=== PATIENT | female | born 1965 | race Caucasian/White ===

== ENCOUNTER 2017-01-29 07:07 | Inpatient (IN) ==
--- NOTE | 2017-01-28 21:36 | Discharge Summary ---
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 insulin use status Qualified Code(s): E11.9 - Type 2 diabetes mellitus without complications (5) Obesity Priority: Secondary Status: Chronic Qualifiers: Obesity type: due to excess calories Obesity classification: adult class 3 (BMI >= 40) Serious obesity comorbidity presence: unspecified whether serious comorbidity present Body mass index: unspecified BMI Qualified Code(s): E66.09 - Other obesity due to excess calories (6) RUPERT on CPAP Priority: Secondary Status: Chronic (7) Chronic pain Priority: Secondary Status: Chronic Qualifiers: Chronic pain type: chronic pain syndrome Qualified Code(s): G89.4 - Chronic pain syndrome (8) Fibromyalgia Priority: Secondary Status: Chronic (9) May-Thurner syndrome Priority: Secondary Status: Chronic - Discharge Medications Prescriptions: Aspirin Enteric Coated [Aspirin EC] 325 mg PO BID #42 tablet.dr Home Medications: OxyCODONE Immed Rel [Roxicodone 5 MG] 5 - 10 mg PO Q6HR PRN #40 tablet 01/28/17 [Rx] Cholecalciferol (D-3) [Vitamin D] 2,000 unit PO DAILY 01/29/17 [History] Clopidogrel [Plavix] 75 mg PO DAILY 01/29/17 [History] Etodolac 500 mg PO BID 01/29/17 [History] Gabapentin [Neurontin] 800 mg PO TID 01/29/17 [History] Lactobacillus Combination No.8 [Adult Probiotic] 1 cap PO DAILY 01/29/17 [ History] Lisinopril [Zestril] 20 mg PO DAILY 01/29/17 [History] Metformin HCl [Glucophage] 1,000 mg PO BID 01/29/17 [History] Metoprolol [Lopressor] 25 mg PO DAILY 01/29/17 [History] Omeprazole [PriLOSEC] 20 mg PO DAILY 01/29/17 [History] Tramadol HCl [Ultram] 50 mg PO BID PRN 01/29/17 [History] Aspirin Enteric Coated [Aspirin EC] 325 mg PO BID #42 tablet. 01/30/17 [Rx] Allergies/Adverse Reactions: 3 Allergy/AdvReac Type Severity Reaction Status Date / Time acetaminophen AdvReac Nausea Verified 01/29/17 08:00 [From Darvocet-N] propoxyphene AdvReac Nausea Verified 01/29/17 08:00 [From Darvocet-N] Primary care physician: Topher Freedman MD - Patient Status Disposition: Transfer Inpatient Rehab Fac Condition: Good - Discharge Instructions Instructions: Diabetes Mellitus Type 2 in Adults (DC), Chronic Hypertension (DC ), Anemia (GEN) Follow Up With: Paco Ashley MD [Partnered Physician] - 02/28/17 3:45 pm Myranda Goldman PAC [Physician Still Tender] - 02/08/17 8:15 am (Second followup (staple removal) 02/16/17 @ 8:15am ) Additional Instructions: Discharge Instructions: Total Knee Replacement Please call [facility] ([phone]), your Primary Care Physician, or report to the Emergency Room if you have any of the following symptoms: Nausea, vomiting, fever greater that 101.5, swelling, chest pain, shortness of breath, increased pain/redness/drainage/odor for your incision site, numbness/ tingling, or any other concerning symptoms. ACTIVITY:Weight-bearing as tolerated. You may progress off support (crutches or walker) as tolerated. MEDICATIONS: Upon discharge resume your home medications. Take all the medications as prescribed. Take a stool softener if taking narcotic pain medications. Stool softeners are only effective if you drink enough fluids. Drink 6-8 glass of water or fluids a day, unless this is not allowed for another health problem. Despite using stool softeners, if you haven't had a bowel movement in 3 days, please switch to a gentle laxative. Gentle laxatives are sold over the counter. You should have a bowel movement within 24 hours, if not call the office. You will be discharged from the hospital with a prescription for pain medication. You are encouraged to decrease the use of narcotic pain medication as tolerated. Should you require a refill, please call the office. [facility] prescribes narcotic pain medication for only 4-6 weeks after surgery. If you require pain medication beyond this time period, you may be referred to your Primary Care Physician or to the Pain Clinic for further evaluation. Plan ahead for refills on pain medication as many narcotics either need to be picked up at the office or mailed. It is best to call 48-72 hours in advance of needing a prescription refill so you don't run out of medication. To help control the post-operative pain, you may take NSAIDs (Aleve,Advil, Motrin, Ibuprofen, Naprosyn) or Tylenol as prescribed on the bottle in addition to the pain medication. ANTICOAGULATION (blood thinners): Continue your Aspirin, Lovenox or Coumadin as prescribed to help prevent a blood clot in the leg or in the lungs. As long as your incision remains dry and you tolerate the NSAIDs (Aleve, Advil, Motrin, ibuprofen, naprosyn), it is OK to use the NSAIDS while you are taking your anticoagulation medication. Should your incision start to drain, stop the NSAID and contact our office. Common symptoms of blood clot in the legs include: localized pain, swelling, calf tenderness, redness or discoloration of the skin. Blood clot in the lung symptoms include: shortness of breath, rapid pulse, sweating, and chest pain that worsens with deep breathing, coughing up blood, lightheadedness, feelings of anxiety. If you experience any of these symptoms notify your physician immediately, go to the emergency room, or if having trouble breathing, call 911. WOUND CARE: Leave the dressing on for 7 to 10days. You may change the dressing if it becomes saturated greater than 50%. Do not get the dressing wet at anytime. Wash your hands with antibacterial soap, rinse and dry prior to any wound care. If you have bran the visiting nurse or rehab facility can remove the stapes 10-14 days after surgery and place steri-strips across the wound. Leave the steri-strips in place until they fall off on their won. You may let water from the shower run on top of the steri-strips. If you do not have a visiting nurse or rehab facility, you will need to return to the office at 10-14 days for the bran to be removed. If you have itching or redness around the dressing call the office. FOLLOW-UP: Please follow up with your surgeon in the orthopedic clinic in 4 weeks from the day of surgery. If you have bran that need to be removed, you will need to come back to the office in 10-14 days from the day of surgery. - Hospital Course Hospital course: Ms. Del Castillo is a 51 year old female - Time Spent with Patient Total time spent providing and/or coordinating discharge services: <Paco Ashley - Last Filed: 02/02/17 06:35> Date of Encounter: 02/02/17 Time of Encounter: 06:35 - Discharge Diagnosis (1) Morbid obesity with BMI of 50.0-59.9, adult Priority: Secondary Status: Chronic (2) Arthritis of knee, left Priority: Primary Status: Chronic (3) Status post total knee replacement, left Priority: Primary Status: Acute (4) HTN (hypertension) Priority: Secondary Status: Chronic Qualifiers: Hypertension type: essential hypertension Qualified Code(s): I10 - Essential (primary) hypertension (5) DMII (diabetes mellitus, type 2) Priority: Secondary Status: Chronic Qualifiers: Diabetes mellitus complication status: without complication Diabetes mellitus intermodal owner operator truck driver insulin use: unspecified intermodal owner operator truck driver insulin use status Qualified Code(s): E11.9 - Type 2 diabetes mellitus without complications (6) RUPERT on CPAP Priority: Secondary Status: Chronic (7) Chronic pain Priority: Secondary Status: Chronic Qualifiers: Chronic pain type: chronic pain syndrome Qualified Code(s): G89.4 - Chronic pain syndrome (8) Fibromyalgia Priority: Secondary Status: Chronic (9) May-Thurner syndrome Priority: Secondary Status: Chronic (10) Acute blood loss anemia Priority: Primary Status: Acute Primary care physician: Topher Freedman MD - Patient Status Functional capacity at discharge: uses cane/walker Overall status at discharge: patient is progressing back to baseline - Hospital Course Hospital course: Ms. Del Castillo is a 51 year old female Status post left total knee replacement. The patient had an uneventful postoperative course. They received antibiotics and physical therapy and were discharged in stable condition. There will follow -up in the office in 2 weeks. - Time Spent with Patient Total time spent providing and/or coordinating discharge services:
--- NOTE | 2017-01-29 07:48 | Anesthesia Evaluation PreOp ---
Date of Encounter: 01/29/17 Time of Encounter: 07:53 - Past History Planned Operation: Left Total Knee Cardiac History: HTN Pulmonary History: RUPERT Dx (CPAP) SURFACE MINER History: Denies Any Significant HX Other Medical History: Diabetes Type II, GERD, Other (Fibromyalgia) Anesthesia History: No Prior Anesthetic Complications, Past Anesthesia (Appy, Cervical diskectomy, R. Knee scope, Sinus sx, T&A, Partial Hyst,) : No Alcohol Use: none Drug use: none Medications and Allergies Aspirin Enteric Coated [Aspirin EC] 325 mg PO DAILY #21 tablet.dr 01/28/17 [Rx] OxyCODONE Immed Rel [Roxicodone 5 MG] 5 - 10 mg PO Q6HR PRN #40 tablet 01/28/17 [Rx] Aspirin [Lo-Dose Aspirin EC] 81 mg PO DAILY 01/29/17 [History] Cholecalciferol (D-3) [Vitamin D] 2,000 unit PO DAILY 01/29/17 [History] Clopidogrel [Plavix] 75 mg PO DAILY 01/29/17 [History] Etodolac [Etodolac] 500 mg PO BID 01/29/17 [History] Gabapentin [Neurontin] 800 mg PO TID 01/29/17 [History] Lactobacillus Combination No.8 [Adult Probiotic] 1 cap PO DAILY 01/29/17 [ History] Lisinopril [Zestril] 20 mg PO DAILY 01/29/17 [History] Metformin HCl [Glucophage] 1,000 mg PO BID 01/29/17 [History] Metoprolol [Lopressor] 25 mg PO DAILY 01/29/17 [History] Omeprazole [PriLOSEC] 20 mg PO DAILY 01/29/17 [History] Tramadol HCl [Ultram] 50 mg PO BID PRN 01/29/17 [History] 3 Allergy/AdvReac Type Severity Reaction Status Date / Time acetaminophen AdvReac Nausea Verified 01/29/17 08:00 [From Darvocet-N] propoxyphene AdvReac Nausea Verified 01/29/17 08:00 [From Darvocet-N] - Meds/Allergy Pre-op Review Medications Reviewed: Yes Allergies Reviewed: Yes Beta Blockers on Current Med List: Yes If Beta Blockers taken, Date/Time (Last Dose taken): 01/29/2017 @ 06:00 Anesthesia Results - Labs Laboratory Tests 01/12/17 01/12/17 01/12/17 10:40 10:40 10:40 WBC 8.0 Hgb 11.5 Hct 36.7 Plt Count 138 L INR 1.1 Sodium 139 Potassium 3.9 Chloride 104 Carbon Dioxide 27 BUN 13 - Imaging EKG: image reviewed (SR) Anesthesia Exam O2 Sat Height 1.68 m Height 1.68 m Weight 150.139 kg Weight 150.139 kg O2 Sat by Pulse Oximetry 96 Vital Signs Temp Pulse Resp BP Pulse Ox 98.2 F 63 18 143/76 96 01/29/17 07:46 01/29/17 07:46 01/29/17 07:46 01/29/17 07:46 01/29/17 07:46 Height: 5'6'' Weight: 331# NPO (# of Hours): > 8 hrs Pain Scale: 0 Pain Scale Used: Numeric (1 - 10) - HEENT Pupil (Motor): Pupils equal, EOMI Mallampati: III Teeth: Normal Oral Opening: Greater than 3 - SURFACE MINER LOC: Oriented SURFACE MINER Motor: Normal RUE, Normal LUE, Normal RLE, Normal LLE, Normal Face SURFACE MINER Sensory: Normal: RUE, LUE, RLE, LLE, Face - Cardiac Rhythm: Regular Murmur: None JVD: No Carotid Bruit: No - Pulmonary Breath Sounds: bilateral Clear Respiratory Effort: Symmetrical Anesthesia Assess/Plan ASA Score: 4 Modified Paulo Scale for Level of Consciousness: Cooperative, oriented, and tranquil Anesthetic Plan: General, Regional (Left Fem. Nerve Block) Autologous Blood: Yes Monitoring Plan: Standard Monitors Recovery Plan: PACU
--- NOTE | 2017-01-29 07:54 | History & Physical Report ---
Date of Encounter: 01/29/17 Time of Encounter: 07:54 24 Hour HP Update - Instructions Instructions: If the History and Physical is less than 30 days old and was completed prior to A.M. admission and or procedure and has NOT been updated on calendar day of procedure please complete this update prior to performing procedure. - Update Patient reports changes in Medical Condition: No Changes in examination, assessment, or condition: No Changes in Medication: No Preop tests/diagnostics Reviewed: Yes Surgery Remains Indicated: Yes Consent for Planned Operative Procedure(s) Verified: Yes - Pre-Operative Checklist Preoperative Checklist Indicated: No Prophylactic Antibiotic Ordered: Yes Is VTE Prophylaxis Indicated?: Yes
[2017-01-29] MEDS ORDERED: CeFAZolin Pre 3,000 MG/100 ML 3,000 MG/100 ML BAG IVPB ONE (07:56)
[2017-01-29] MEDS ORDERED: Ringers Solution, Lactated 1,000 ML IVC SCH ×3 (08:00→12:48)
[2017-01-29] MEDS ORDERED: Dexamethasone 4 MG/ML VIAL ONE (08:17)
[2017-01-29] MEDS ORDERED: *HR* FentaNYL (PF) 100 MCG/2 ML VIAL ONE (08:17)
[2017-01-29] MEDS ORDERED: *HR* Midazolam HCl 2 MG/2 ML VIAL ONE (08:17)
[2017-01-29] MEDS ORDERED: Ondansetron 4 MG/2 ML VIAL ONE (08:17)
[2017-01-29] MEDS ORDERED: Lidocaine -MPF 2% 2 ML VIAL ONE (08:17)
[2017-01-29] MEDS ORDERED: *HR* Propofol 200 MG/20 ML VIAL IVP ONE ×2 (08:18→09:10)
[2017-01-29] MEDS ORDERED: Ondansetron 4 MG/2 ML VIAL IVP ONE (08:23)
[2017-01-29] MEDS ORDERED: *HR* Promethazine 25 MG/ML VIAL IVP PRN (08:23)
[2017-01-29] MEDS ORDERED: *HR* Labetalol 20 MG/4 ML SYRINGE IVP PRN (08:23)
[2017-01-29] MEDS ORDERED: ROPIVACAINE HCL/PF 0.5% 30 ML VIAL ONE (08:38)
--- NOTE | 2017-01-29 09:07 | Anesthesia Procedures ---
Date of Encounter: 01/29/17 Time of Encounter: 08:57 Procedures: Anesthesia - Nerve Block Procedure Date: 01/29/17 Time: 08:57 Surgical Procedure: left total knee Checklist: Correct Patient Identifier, Correct procedure, History checked Correct side: Left Blood Thinner: No Monitor Applied: BP, Pulse Oximetry Supplemental Oxygen via Nasal Cannula (L/min): 2 Sedation: Versed (mg): 2 Sedation: Fentanyl (mcg): 100 Indication: Post Op Analgesia Block Type: Femoral (and IPACK) Catheter placed: No Sterile Technique: Yes Ultrasound used: Yes Anatomy identified: Yes Visual spread of Local: Yes Neuro Stimulation: No Blood on Needle Aspiration: No Smooth Injection of Local: Yes Pain with Injection of Local: No Prep: Chlorhexadine Needle: 22 x 50 mm Stimuplex Local: Ropivacaine (30ml of 0.5%, ), Other (30ml of 0.25% rop plain) Volume (cc): 60ml Number of Attempts: 1 Complications: None/effective block Vitals: vss though out, block per request of surgeon
--- NOTE | 2017-01-29 10:28 | Orthopedic Operative Note ---
Date of procedure: 01/29/17 Pre-op diagnosis: Knee arthritis left Post-op diagnosis: same Procedure: Procedure: Left Total knee replacement Estimated blood loss: 500 cc Hardware: Metal and polyethylene replacement: Biomet Femur: 70, 14 x 120 Tibia: 75, 14 x 80 Milady insert: 10 Patella: 40 Exam Under anesthesia: Loss full extension 10 degrees full flexion Procedural Notes: Grade 4 arthritic changes medial compartment and patellofemoral joint. Operative procedure: The patient was brought to the operating room and placed on the operating room table. After general anesthesia was administered the operative knee was examined. Findings were noted in the exam under anesthesia. The operative extremity was prepped and draped in sterile surgical fashion. The patient received IV antibiotics prior to skin incision. A standard midline incision was made centered over the patella. The incision was made through the skin and subcutaneous tissue. A medial parapatellar tendon approach was performed. Care was taken to preserve tissue along the medial aspect of the patella. And to protect the patella tendon. The deep MCL was released off the medial tibia. The infra patella fat pad was excised. Knee was brought into flexion. Patient noted to have grade 4 arthritic changes medial compartment and patellofemoral joint. The entry hole was made for the intramedullary femoral guide. The guide was seated in 6 degrees of valgus. Anterior cut was made followed by the distal cut. The PCL the medial and the lateral menisci were excised. The tibia was subluxed forward. The entry hole was made for the intramedullary tibial guide. Guide was seated to resect 2 mm off the more abnormal side. The knee was brought into flexion the distal femur was sized to a 70 The femur was first reamed to a 14 x 1 20 The femoral guide was seated, the anterior cut was made followed by the posterior condylar cut, followed by the chamfer cuts. The finishing guide was seated the box cut was made. Trial had good fit and fixation The tibia was sized to a an 85 The tibia was first reamed to 14 x 80 Trial reduction revealed full extension no varus valgus instability with the appropriate X insert. The patella was everted and cut was made at the level of the insertion of the quadriceps and patella tendon. The patella was sized to a 40 the guide was seated and the lug holes are drilled. Trial reduction revealed excellent patella tracking. All trial components were removed all bony surfaces were irrigated. Components were assembled on the back table. The femur was cemented first followed by the tibia. The 10 Milady was seated and secured. The knee was brought into full extension. The patella was cemented and held in place with the patellar holding clamp. After the cement had hardened, the knee sat for 2 minutes with a Betadine saline solution. The knee was then irrigated out with 2 L of pulse irrigation. The knee was closed by the PA. The extensor mechanism was closed with #2 FiberWire suture and #2 PDS suture. The subcutaneous tissue was then irrigated and closed deep with #1 PDS suture superficially with 0 PDS suture and skin was closed with skin bran The patient was then placed in a sterile dressing and a postoperative brace extubated and transferred to recovery room in stable condition. Anesthesia: DIPAK Surgeon: Paco Ashley Cable Technician: Gilda Richardson Condition: stable Disposition: PACU
--- NOTE | 2017-01-29 10:33 | Physician Discharge Referral ---
Home Health/Hosp Referral Info Transfer to: Home Health Provider in Charge Post Discharge: PCP - Diagnosis (1) Arthritis of knee, left Priority: Primary Status: Chronic (2) Status post total knee replacement, left Priority: Primary Status: Acute (3) HTN (hypertension) Priority: Secondary Status: Chronic (4) DMII (diabetes mellitus, type 2) Priority: Secondary Status: Chronic (5) Obesity Status: Chronic (6) RUPERT on CPAP Priority: Secondary Status: Chronic (7) Chronic pain Priority: Secondary Status: Chronic (8) Fibromyalgia Priority: Secondary Status: Chronic (9) May-Thurner syndrome Priority: Secondary Status: Chronic - Respiratory Orders None Smoking Cessation: Smoking cessation has been advised. For more information, call the [employer] Tobacco Quit Line at 0-898-MBPE-NOW. - Diet/Nutrition Diet/Nutrition Orders: Regular - Activity Activity Orders: Up ad fabian, Ambulate - Services Needed Following services are medically necessary services: Nursing, Home Health Aide, Physical Therapy, Occupational Therapy Other Treatments: .Opsite placed. Keep dressing intact until first follow up appointment. If > 50 % saturated,notify offfice, remove dressing and place appropriate dressing back in place. Dressing is water resistant, not water-proof. OK to shower, but do not get dressing wet. Michelet in place, to be removed at POD#14-21. PT/OT. WBAT to affected extremity. Follow Total Knee Precautions x 6 weeks. STAY IN KNEE IMMOBILIZER DURING AMBULATION TO ALLOW WOUND TO HEAL X 3 WEEKS. Plan to discontinue brace after first post-operative appointment. ICE and elevate extremity frequently throughout the day. Encourage ambulation exercises. Use incentive spirometer 10 times every hour. - Transfer Medications Prescriptions: OxyCODONE Immed Rel [Roxicodone 5 MG] 5 - 10 mg PO Q6HR PRN #40 tablet PRN Reason: Pain Aspirin Enteric Coated [Aspirin EC] 325 mg PO DAILY #21 tablet. Home Medications: Aspirin Enteric Coated [Aspirin EC] 325 mg PO DAILY #21 tablet. 01/28/17 [Rx] OxyCODONE Immed Rel [Roxicodone 5 MG] 5 - 10 mg PO Q6HR PRN #40 tablet 01/28/17 [Rx] Aspirin [Lo-Dose Aspirin EC] 81 mg PO DAILY 01/29/17 [History] Cholecalciferol (D-3) [Vitamin D] 2,000 unit PO DAILY 01/29/17 [History] Clopidogrel [Plavix] 75 mg PO DAILY 01/29/17 [History] Etodolac 500 mg PO BID 01/29/17 [History] Gabapentin [Neurontin] 800 mg PO TID 01/29/17 [History] Lactobacillus Combination No.8 [Adult Probiotic] 1 cap PO DAILY 01/29/17 [ History] Lisinopril [Zestril] 20 mg PO DAILY 01/29/17 [History] Metformin HCl [Glucophage] 1,000 mg PO BID 01/29/17 [History] Metoprolol [Lopressor] 25 mg PO DAILY 01/29/17 [History] Omeprazole [PriLOSEC] 20 mg PO DAILY 01/29/17 [History] Tramadol HCl [Ultram] 50 mg PO BID PRN 01/29/17 [History] Allergies/Adverse Reactions: 3 Allergy/AdvReac Type Severity Reaction Status Date / Time acetaminophen AdvReac Nausea Verified 01/29/17 08:00 [From Darvocet-N] propoxyphene AdvReac Nausea Verified 01/29/17 08:00 [From Darvocet-N] Certification: Further, I certify that my clinical findings support that this patient is homebound (i.e. absences from home require considerable and taxing effort and are for medical reasons or temple services or infrequently or short duration when for other reasons) because: Homebound Reason: Post-surgery restriction and or conditions limit ability to leave home Attestation: My signature below is to certify that this patient is under my care and that I, or nurse practitioner, or a physician's workers compensation claims assistant working with me, has a face-to -face encounter with this patient.
[2017-01-29] MEDS: *HR* HYDROmorphone (PF) 1 MG/ML SYRINGE IVP PRN ×4 (11:14→18:34)
[2017-01-29] MEDS ORDERED: Ketorolac 30 MG/ML VIAL IVP ONE (11:43)
[2017-01-29] MEDS ORDERED: Acetaminophen IV 1,000 MG/100 ML INFUS..BTL ONE (12:15)
[2017-01-29 12:19] LABS: Hematocrit 36.3 % (35.3-44.9); Hemoglobin 11.7 g/dL (11.5-15.4)
--- NOTE | 2017-01-29 12:24 | Anesthesia Evaluation Post Op ---
Date of Encounter: 01/29/17 Time of Encounter: 12:22 - Vital Signs Vital Signs: vss - Lungs Lungs: Clear Ascult./Percussion - Airway Airway: Non-obstructed - Cardiovascular Baseline Rhythm - Mental Status Mental Status: Asleep with brisk response to light stimulation - Pain Pain Scale used: Josephine (Faces) (ok to transfer if pain is tolerable) - Nausea Vomiting Nausea Vomiting: Not Present - Hydration Hydration: Ice chips - Discharge PostOp Status: Transfer Patient to floor
[2017-01-29] MEDS ORDERED: *HR* OxyCODONE Immed Rel 5 MG TABLET PO PRN (12:48)
[2017-01-29] MEDS ORDERED: MOM Conc 10 ML UD.LIQ PO PRN (12:48)
[2017-01-29] MEDS ORDERED: Sennosides 8.6 MG TABLET PO PRN (12:48)
[2017-01-29] MEDS ORDERED: Naloxone 0.4 MG/ML INJ IVP PRN (12:48)
[2017-01-29] MEDS ORDERED: Ondansetron 4 MG/2 ML VIAL IVP PRN (12:48)
[2017-01-29] MEDS: Gabapentin 400 MG CAPSULE PO SCH ×2 (15:03→20:53)
[2017-01-29] MEDS: ceFAZolin 3,000 MG in D5% in Water 100 ML IVPB SCH ×2 (16:15→23:09)
[2017-01-29] MEDS: *HR* OxyCODONE Immed Rel 5 MG TABLET PO PRN (17:34)
[2017-01-29] MEDS: *HR* Enoxaparin 30 MG/0.3 ML SYRINGE SQ SCH (17:34)
[2017-01-29] MEDS ORDERED: *HR* Enoxaparin 30 MG/0.3 ML SYRINGE SQ SCH (18:00)
[2017-01-29] MEDS ORDERED: *HR* Dextrose 50 % in Water (Syg) 50 ML SYRINGE IVP PRN (20:01)
[2017-01-29] MEDS ORDERED: D5% in Water 1,000 ML IVC PRN (20:01)
[2017-01-29] MEDS ORDERED: Dextrose Gel 15 GM PO PRN ×2 (20:01)
[2017-01-29] MEDS: *HR* Metformin 500 MG TABLET PO SCH (20:53)
[2017-01-29] MEDS ORDERED: Temazepam 15 MG CAPSULE PO PRN (21:00)
[2017-01-29] MEDS: Insulin LISPRO 300 UNITS/3 ML VIAL SQ SCH (21:31)
[2017-01-30] MEDS: *HR* HYDROmorphone (PF) 1 MG/ML SYRINGE IVP PRN ×4 (00:42→23:36)
[2017-01-30] MEDS: *HR* OxyCODONE Immed Rel 5 MG TABLET PO PRN ×4 (04:31→22:24)
[2017-01-30] MEDS: *HR* Enoxaparin 30 MG/0.3 ML SYRINGE SQ SCH ×2 (06:45→18:24)
--- NOTE | 2017-01-30 06:54 | Orthopedics Progress Note ---
Date of Encounter: 01/30/17 Time of Encounter: 06:53 - Assessment and Plan (1) Morbid obesity with BMI of 50.0-59.9, adult Current Visit: Yes Status: Chronic (2) Arthritis of knee, left Current Visit: Yes Status: Chronic (3) Status post total knee replacement, left Current Visit: Yes Status: Acute (4) HTN (hypertension) Current Visit: Yes Status: Chronic Qualifiers: Hypertension type: essential hypertension Qualified Code(s): I10 - Essential (primary) hypertension (5) DMII (diabetes mellitus, type 2) Current Visit: Yes Status: Chronic Qualifiers: Diabetes mellitus complication status: without complication Diabetes mellitus long term care administrator insulin use: unspecified chcf insulin use status Qualified Code(s): E11.9 - Type 2 diabetes mellitus without complications (6) RUPERT on CPAP Current Visit: Yes Status: Chronic (7) Chronic pain Current Visit: Yes Status: Chronic Qualifiers: Chronic pain type: chronic pain syndrome Qualified Code(s): G89.4 - Chronic pain syndrome (8) Fibromyalgia Current Visit: Yes Status: Chronic (9) May-Thurner syndrome Current Visit: Yes Status: Chronic Subjective Interval history: Patient was seen this morning doing well without complaints. Afebrile vital signs stable. Operative extremity: Neurovascularly intact Dressing clean dry and intact Calves nontender Assessment and plan: Continue with postoperative care hematocrit 36 Objective Vital signs: Vital Signs Temp Pulse Resp BP Pulse Ox 01/30/17 05:45 97.9 F 60 16 112/64 96 01/29/17 23:45 98.6 F 75 15 108/71 98 01/29/17 21:23 97.8 F 70 16 118/65 96 01/29/17 18:34 64 14 147/67 96 01/29/17 17:26 98.2 F 80 18 121/77 97 01/29/17 16:06 97.7 F 65 16 119/57 97 01/29/17 14:55 97.7 F 59 12 115/56 97 01/29/17 14:00 97.9 F 62 14 128/63 95 01/29/17 13:23 97.9 F 56 12 101/53 98 01/29/17 12:58 98.3 F 60 16 151/74 96 01/29/17 12:44 60 18 142/62 99 01/29/17 12:37 97.0 F L 58 16 145/60 98 01/29/17 12:27 56 18 142/68 99 01/29/17 12:17 59 22 148/57 100 01/29/17 12:07 97.2 F L 57 18 148/70 100 01/29/17 11:57 63 22 148/70 100 01/29/17 11:47 61 20 144/66 100 01/29/17 11:37 97.0 F L 61 20 149/83 100 01/29/17 11:27 64 22 153/76 100 01/29/17 11:17 68 20 150/79 100 01/29/17 11:07 97.0 F L 67 20 170/80 100 01/29/17 09:26 65 16 140/69 99 01/29/17 09:13 65 16 133/69 100 01/29/17 09:00 63 16 140/72 99 01/29/17 08:43 60 63 141/72 98 01/29/17 08:39 98.2 F 63 18 143/76 96 01/29/17 08:33 62 16 161/87 98 01/29/17 08:06 98.2 F 63 18 143/76 96 01/29/17 07:46 98.2 F 63 18 143/76 96 Intake and Output 01/29/17 01/29/17 01/30/17 15:59 23:59 07:59 Intake Total 100 / 100 100 / 100 Output Total 500 / 500 250 / 250 Balance -400 / -400 100 / 100 -250 / -250 Intake: IV Fluids 100 / 100 100 / 100 Ancef Premix 3,000 MG/100 100 / 100 ML 3,000 mg In 100 ml @ 200 mls/hr IVPB PREOP ONE Rx#:[id number] Ancef 3,000 MG In 100 / 100 Dextrose 5% 100 ML @ 200 mls/hr IVPB Q8HR RENÉ Rx#: [id number] Output: Urine 250 / 250 Estimated Blood Loss 500 / 500 Other: Weight 150.139 kg 148 kg Blood Glucose* 134 173 - Labs CBC & BMP: 01/29/17 11:53 Labs: Abnormal lab results POC Glucose 107 (58-89) H 01/29/17 07:40 - VTE Documentation of Mechanical Device: Intermittent pneumatic compression device Consult Discharge Plan - Plan Referrals: Topher Freedman MD [Primary Care Provider] -
[2017-01-30] MEDS: Insulin LISPRO 300 UNITS/3 ML VIAL SQ SCH ×4 (07:30→23:31)
[2017-01-30 08:21] LABS: Hematocrit 30.7 % (35.3-44.9)
[2017-01-30 08:22] LABS: Hemoglobin 9.8 g/dL (11.5-15.4)
[2017-01-30 08:34] LABS: BUN/Creatinine Ratio 19 (6-26); Blood Urea Nitrogen 15 mg/dL (7-20); Calcium 8.7 mg/dL (8.6-10.8); Carbon Dioxide 26 mEq/L (19-29); Chloride 100 mEq/L (98-109); Glucose 110 mg/dL (70-99); Osmolality,Calculated 285 (280-300); Sodium 137 mEq/L (136-145); eGFR For African Americans > 60 (> 60); eGFR For Non-African Americans > 60 (> 60)
[2017-01-30 08:35] LABS: Potassium 4.9 mEq/L (3.5-4.5)
[2017-01-30] MEDS: Lactobacillus 1 EACH CAP.SPRINK PO SCH (08:37)
[2017-01-30] MEDS: Lisinopril 20 MG TABLET PO SCH (08:37)
[2017-01-30] MEDS: Aspirin Enteric Coated 81 MG Tablet PO SCH (08:37)
[2017-01-30] MEDS: Gabapentin 400 MG CAPSULE PO SCH ×3 (08:37→22:14)
[2017-01-30] MEDS: Cholecalciferol (D-3) 1,000 UNIT TABLET PO SCH (08:38)
[2017-01-30] MEDS: *HR* Metformin 500 MG TABLET PO SCH ×2 (08:38→22:14)
--- NOTE | 2017-01-30 12:06 | Event Note ---
Date of Encounter: 01/30/17 Time of Encounter: 12:04 PCR - Left TKR 01/30/17 - POD#1 Patient seen at bedside. Cormorbidities: DMII, Obesity, HTN, May-Thurner syndrome (Plavix), Chronic pain , fibromyalgia, RUPERT - CPAP Labs: K 4.9 - monitoring Pain control: adequate - Allergy to Darvocet- ok with Oxycodone Increased DVT risk - continue Lovenox in hospital Participating in PT. Knee immobilizer brace, locked in extension x 2-4 weeks. No knee flexion to allow incision to heal* All questions and concerns addressed. Educated on use of incentive spirometer, ambulation, and hydration. Patient educated on post-operative restrictions and care. Addressed: DVT s/s, Knee immobilization - restrictions Home Antigoaculation: ASA 325 BID x 21 days, along with continuing Plavix. RX printed and signed* D/C plan:. ECF - likely
--- NOTE | 2017-01-30 17:18 | Physician Discharge Referral ---
ExtendedCare Referral Info Transfer To: F Provider in Charge after Transfer: PCP Institutional Level of Care: Skilled - Diagnosis (1) Arthritis of knee, left Priority: Primary Status: Chronic (2) Status post total knee replacement, left Priority: Primary Status: Acute (3) HTN (hypertension) Priority: Secondary Status: Chronic (4) DMII (diabetes mellitus, type 2) Priority: Secondary Status: Chronic (5) Obesity Priority: Secondary Status: Chronic (6) RUPERT on CPAP Priority: Secondary Status: Chronic (7) Chronic pain Priority: Secondary Status: Chronic (8) Fibromyalgia Priority: Secondary Status: Chronic (9) May-Thurner syndrome Status: Chronic Expected Duration of Placement: < 30 days Prognosis: Good Aware of Diagnosis: Patient Aware of Prognosis: Patient - Transfer Medications Prescriptions: Aspirin Enteric Coated [Aspirin EC] 325 mg PO BID #42 tablet. Home Medications: OxyCODONE Immed Rel [Roxicodone 5 MG] 5 - 10 mg PO Q6HR PRN #40 tablet 01/28/17 [Rx] Cholecalciferol (D-3) [Vitamin D] 2,000 unit PO DAILY 01/29/17 [History] Clopidogrel [Plavix] 75 mg PO DAILY 01/29/17 [History] Etodolac 500 mg PO BID 01/29/17 [History] Gabapentin [Neurontin] 800 mg PO TID 01/29/17 [History] Lactobacillus Combination No.8 [Adult Probiotic] 1 cap PO DAILY 01/29/17 [ History] Lisinopril [Zestril] 20 mg PO DAILY 01/29/17 [History] Metformin HCl [Glucophage] 1,000 mg PO BID 01/29/17 [History] Metoprolol [Lopressor] 25 mg PO DAILY 01/29/17 [History] Omeprazole [PriLOSEC] 20 mg PO DAILY 01/29/17 [History] Tramadol HCl [Ultram] 50 mg PO BID PRN 01/29/17 [History] Aspirin Enteric Coated [Aspirin EC] 325 mg PO BID #42 tablet. 01/30/17 [Rx] Allergies/Adverse Reactions: 3 Allergy/AdvReac Type Severity Reaction Status Date / Time acetaminophen AdvReac Nausea Verified 01/29/17 08:00 [From Praveent-N] propoxyphene AdvReac Nausea Verified 09/18/17 08:00 [From Darvocet-N] - Respiratory Orders None Smoking Cessation: Smoking cessation has been advised. For more information, call the [place] Tobacco Quit Line at 9-859-DXUX-NOW. - Lab Orders Lab Orders: CBC - Ancillary Orders May use pressure relief devices daily prn, May go on ANNA w/family/respon libertarian w /meds at nurse discretion PRN, May consult with Dentist, Marine Chronometer Assembler, Machine Farmworker PRN - Mobility Orders Chair, Ambulate - Rehabiliation Orders Rehab Potential: Good Rehab Orders: ROM Exercises, Evaluation for Physical Therapy, Evaluation for Occupational Therapy Other: Wear knee immobilizer at all times x 3-4 weeks. No knee flexion WBAT - Treatments List/Other: Opsite dressing, leave intact until first post-operative visit. If dressing becomes >50% saturated, contact office, remove dressing and place appropriate dressing in its place. Do not allow for dressing to get wet. D[place] in place, plan to remove at post-operative day #14-16. Total Joint Precautions x 6 weeks Apply cold therapy wrap 3-6x/day for 20 minutes at a time. Encourage ambulation throughout the day Use Incentive spirometer 10x/hour. Elevate affected extremity above heart as tolerated. Brace: Wear knee immobilizer at all times x 3-4 weeks. No knee flexion WBAT CERTIFICATION: I certify that the transfer of the above named patient to an Extended Care Facility is necessary for the continuing treatment of the diagnosis listed. The above information is true and accurate reflection of patient's current condition. Confidential - Redisclosure prohibited without a patient's written consent.
[2017-01-31] MEDS: *HR* OxyCODONE Immed Rel 5 MG TABLET PO PRN ×2 (04:05→15:02)
[2017-01-31] MEDS: *HR* Enoxaparin 30 MG/0.3 ML SYRINGE SQ SCH ×2 (05:55→17:33)
[2017-01-31] MEDS: *HR* HYDROmorphone (PF) 1 MG/ML SYRINGE IVP PRN (05:56)
--- NOTE | 2017-01-31 06:52 | Orthopedics Progress Note ---
Date of Encounter: 01/31/17 Time of Encounter: 06:52 - Assessment and Plan (1) Morbid obesity with BMI of 50.0-59.9, adult Current Visit: Yes Status: Chronic (2) Arthritis of knee, left Current Visit: Yes Status: Chronic (3) Status post total knee replacement, left Current Visit: Yes Status: Acute (4) HTN (hypertension) Current Visit: Yes Status: Chronic Qualifiers: Hypertension type: essential hypertension Qualified Code(s): I10 - Essential (primary) hypertension (5) DMII (diabetes mellitus, type 2) Current Visit: Yes Status: Chronic Qualifiers: Diabetes mellitus complication status: without complication Diabetes mellitus extermination inspector insulin use: unspecified skilled nursing insulin use status Qualified Code(s): E11.9 - Type 2 diabetes mellitus without complications (6) RUPERT on CPAP Current Visit: Yes Status: Chronic (7) Chronic pain Current Visit: Yes Status: Chronic Qualifiers: Chronic pain type: chronic pain syndrome Qualified Code(s): G89.4 - Chronic pain syndrome (8) Fibromyalgia Current Visit: Yes Status: Chronic (9) May-Thurner syndrome Current Visit: Yes Status: Chronic (10) Acute blood loss anemia Current Visit: Yes Status: Acute Subjective Interval history: Patient was seen this morning doing well without complaints. Afebrile vital signs stable. Operative extremity: Neurovascularly intact Dressing clean dry and intact Calves nontender Assessment and plan: Continue with postoperative care hematocrit 30 Objective Vital signs: Vital Signs Temp Pulse Resp BP Pulse Ox 01/31/17 01:02 98.9 F 84 20 158/70 99 01/30/17 23:29 99 F 74 18 138/62 95 01/30/17 20:17 98.3 F 68 97 100/61 01/30/17 15:09 98.5 F 97 20 97/58 98 01/30/17 11:17 97.7 F 66 18 109/69 96 01/30/17 07:08 98.3 F 69 18 134/73 97 Intake and Output 01/30/17 01/30/17 01/31/17 15:59 23:59 07:59 Intake Total 360 / 360 50 / 50 800 / 800 Output Total 400 / 400 1550 / 1550 Balance 360 / 360 -350 / -350 -750 / -750 Intake: Oral 360 / 360 50 / 50 800 / 800 Output: Urine 400 / 400 1550 / 1550 Other: Meal Lunch Percent of Meal Consumed 100% # Voids 1 2 Blood Glucose* 115 91 - Labs CBC & BMP: 01/30/17 07:50 01/30/17 07:50 Labs: Abnormal lab results Hgb 9.8 g/dL (11.5-15.4) L D 01/30/17 07:50 Hct 30.7 % (35.3-44.9) L 01/30/17 07:50 Potassium 4.9 mEq/L (3.5-4.5) H 01/30/17 07:50 Glucose 110 mg/dL (70-99) H 01/30/17 07:50 POC Glucose 121 (58-89) H 01/30/17 21:07 - VTE Documentation of Mechanical Device: Venous foot pump, device Consult Discharge Plan - Plan Additional Instructions: Discharge Instructions: Total Knee Replacement Please call [facility] ([phone]), your Primary Care Physician, or report to the Emergency Room if you have any of the following symptoms: Nausea, vomiting, fever greater that 101.5, swelling, chest pain, shortness of breath, increased pain/redness/drainage/odor for your incision site, numbness/ tingling, or any other concerning symptoms. ACTIVITY:Weight-bearing as tolerated. You may progress off support (crutches or walker) as tolerated. MEDICATIONS: Upon discharge resume your home medications. Take all the medications as prescribed. Take a stool softener if taking narcotic pain medications. Stool softeners are only effective if you drink enough fluids. Drink 6-8 glass of water or fluids a day, unless this is not allowed for another health problem. Despite using stool softeners, if you haven't had a bowel movement in 3 days, please switch to a gentle laxative. Gentle laxatives are sold over the counter. You should have a bowel movement within 24 hours, if not call the office. You will be discharged from the hospital with a prescription for pain medication. You are encouraged to decrease the use of narcotic pain medication as tolerated. Should you require a refill, please call the office. [facility] prescribes narcotic pain medication for only 4-6 weeks after surgery. If you require pain medication beyond this time period, you may be referred to your Primary Care Physician or to the Pain Clinic for further evaluation. Plan ahead for refills on pain medication as many narcotics either need to be picked up at the office or mailed. It is best to call 48-72 hours in advance of needing a prescription refill so you don't run out of medication. To help control the post-operative pain, you may take NSAIDs (Aleve,Advil, Motrin, Ibuprofen, Naprosyn) or Tylenol as prescribed on the bottle in addition to the pain medication. ANTICOAGULATION (blood thinners): Continue your Aspirin, Lovenox or Coumadin as prescribed to help prevent a blood clot in the leg or in the lungs. As long as your incision remains dry and you tolerate the NSAIDs (Aleve, Advil, Motrin, ibuprofen, naprosyn), it is OK to use the NSAIDS while you are taking your anticoagulation medication. Should your incision start to drain, stop the NSAID and contact our office. Common symptoms of blood clot in the legs include: localized pain, swelling, calf tenderness, redness or discoloration of the skin. Blood clot in the lung symptoms include: shortness of breath, rapid pulse, sweating, and chest pain that worsens with deep breathing, coughing up blood, lightheadedness, feelings of anxiety. If you experience any of these symptoms notify your physician immediately, go to the emergency room, or if having trouble breathing, call 911. WOUND CARE: Leave the dressing on for 7 to 10days. You may change the dressing if it becomes saturated greater than 50%. Do not get the dressing wet at anytime. Wash your hands with antibacterial soap, rinse and dry prior to any wound care. If you have bran the visiting nurse or rehab facility can remove the stapes 10-14 days after surgery and [address] steri-strips across the wound. Leave the steri-strips in place until they fall off on their won. You may let water from the shower run on top of the steri-strips. If you do not have a visiting nurse or rehab facility, you will need to return to the office at 10-14 days for the bran to be removed. If you have itching or redness around the dressing call the office. FOLLOW-UP: Please follow up with your surgeon in the orthopedic clinic in 4 weeks from the day of surgery. If you have bran that need to be removed, you will need to come back to the office in 10-14 days from the day of surgery. Referrals: Paco Ashley MD [Partnered Physician] - 02/28/17 3:45 pm Myranda Goldman PAC [Physician Real Estate Listing Consultant] - 02/08/17 8:15 am (Second followup (staple removal) 02/16/17 @ 8:15am ) Prescriptions: Aspirin Enteric Coated [Aspirin EC] 325 mg PO BID #42 tablet.
[2017-01-31 06:54] LABS: BUN/Creatinine Ratio 25 (6-26); Blood Urea Nitrogen 19 mg/dL (7-20); Calcium 8.7 mg/dL (8.6-10.8); Carbon Dioxide 28 mEq/L (19-29); Chloride 99 mEq/L (98-109); Glucose 135 mg/dL (70-99); Osmolality,Calculated 286 (280-300); Potassium 4.4 mEq/L (3.5-4.5); eGFR For African Americans > 60 (> 60); eGFR For Non-African Americans > 60 (> 60)
[2017-01-31 06:55] LABS: Sodium 136 mEq/L (136-145)
[2017-01-31 07:02] LABS: Hematocrit 29.1 % (35.3-44.9); Hemoglobin 9.2 g/dL (11.5-15.4)
[2017-01-31] MEDS: Insulin LISPRO 300 UNITS/3 ML VIAL SQ SCH ×4 (08:04→23:15)
[2017-01-31] MEDS: Lisinopril 20 MG TABLET PO SCH (08:07)
[2017-01-31] MEDS: Lactobacillus 1 EACH CAP.SPRINK PO SCH (08:07)
[2017-01-31] MEDS: Gabapentin 400 MG CAPSULE PO SCH ×3 (08:07→20:37)
[2017-01-31] MEDS: Aspirin Enteric Coated 81 MG Tablet PO SCH (08:07)
[2017-01-31] MEDS: Cholecalciferol (D-3) 1,000 UNIT TABLET PO SCH (08:07)
[2017-01-31] MEDS: *HR* Metformin 500 MG TABLET PO SCH ×2 (08:08→20:38)
--- NOTE | 2017-01-31 11:59 | Event Note ---
Date of Encounter: 01/31/17 Time of Encounter: 13:21 PCR - Left TKR 01/30/17 - POD#1 Patient seen at bedside. Cormorbidities: DMII, Obesity, HTN, May-Thurner syndrome (Plavix), Chronic pain , fibromyalgia, RUPERT - CPAP Labs: K 4.9 - monitoring 01/30 01/31 K 4.4 Pain control: adequate - Allergy to Darvocet- ok with Oxycodone Increased DVT risk - continue Lovenox in hospital Participating in PT. Knee immobilizer brace, locked in extension x 2-4 weeks. No knee flexion to allow incision to heal* All questions and concerns addressed. Educated on use of incentive spirometer, ambulation, and hydration. Patient educated on post-operative restrictions and care. Addressed: DVT s/s, Knee immobilization - restrictions Home Antigoaculation: ASA 325 BID x 21 days, along with continuing Plavix. RX printed and signed* D/C plan:. ECF - or Sunday likely
[2017-02-01] MEDS: *HR* OxyCODONE Immed Rel 5 MG TABLET PO PRN ×2 (01:31→07:21)
[2017-02-01] MEDS: *HR* Enoxaparin 30 MG/0.3 ML SYRINGE SQ SCH (06:29)
[2017-02-01] MEDS: *HR* Metformin 500 MG TABLET PO SCH (09:06)
[2017-02-01] MEDS: Aspirin Enteric Coated 81 MG Tablet PO SCH (09:06)
[2017-02-01] MEDS: Lactobacillus 1 EACH CAP.SPRINK PO SCH (09:06)
[2017-02-01] MEDS: Gabapentin 400 MG CAPSULE PO SCH ×2 (09:07→14:13)
[2017-02-01] MEDS: Cholecalciferol (D-3) 1,000 UNIT TABLET PO SCH (09:07)
[2017-02-01] MEDS: Insulin LISPRO 300 UNITS/3 ML VIAL SQ SCH ×3 (09:07→17:35)
[2017-02-01] MEDS: Lisinopril 20 MG TABLET PO SCH (09:08)
[2017-02-01 09:39] LABS: Hematocrit 32.6 % (35.3-44.9); Hemoglobin 10.2 g/dL (11.5-15.4)
--- NOTE | 2017-02-01 12:08 | Orthopedics Progress Note ---
Date of Encounter: 02/01/17 Time of Encounter: 08:00 - Assessment and Plan (1) Status post total knee replacement, left Current Visit: Yes Status: Acute Left TKR 01/30/17 - POD#3 Patient doing well, A&O in chair, Pain controlled. Vitals stable. Afebrile. H/H - Stable - improved - - asymptomatic Plan: Continue in knee immobilizer brace x 2-3 weeks to allow incision to heal, no knee flexion. LLE: WBAT D/C to ECF today - still working with social service director (2) Arthritis of knee, left Current Visit: Yes Status: Chronic (3) HTN (hypertension) Current Visit: Yes Status: Chronic Qualifiers: Hypertension type: essential hypertension Qualified Code(s): I10 - Essential (primary) hypertension (4) DMII (diabetes mellitus, type 2) Current Visit: Yes Status: Chronic Qualifiers: Diabetes mellitus complication status: without complication Diabetes mellitus termite renewal inspector insulin use: unspecified senior care insulin use status Qualified Code(s): E11.9 - Type 2 diabetes mellitus without complications (5) Obesity Current Visit: Yes Status: Chronic Qualifiers: Obesity type: due to excess calories Obesity classification: adult class 3 (BMI >= 40) Serious obesity comorbidity presence: unspecified whether serious comorbidity present Body mass index: unspecified BMI Qualified Code(s): E66.09 - Other obesity due to excess calories (6) RUPERT on CPAP Current Visit: Yes Status: Chronic (7) Chronic pain Current Visit: Yes Status: Chronic Qualifiers: Chronic pain type: chronic pain syndrome Qualified Code(s): G89.4 - Chronic pain syndrome (8) Fibromyalgia Current Visit: Yes Status: Chronic (9) May-Thurner syndrome Current Visit: Yes Status: Chronic Subjective Principal diagnosis: Left TKR 01/30/17 - POD Interval history: Left TKR 01/30/17 - POD#3 Patient doing well, A&O in chair, Pain controlled. Vitals stable. Afebrile. H/H - Stable - improved - - asymptomatic LLE: Minimal swelling, no erythema or ecchymosis noted. No calf tenderness or warmth noted. ROM limited. NV intact distally. In knee immobilzer brace. Plan: Continue in knee immobilizer brace x 2-3 weeks to allow incision to heal, no knee flexion. LLE: WBAT D/C to ECF today - still working with social service director. Objective Vital signs: Vital Signs Temp Pulse Resp BP Pulse Ox 02/01/17 11:16 98.6 F 72 16 139/80 96 02/01/17 07:35 97.9 F 76 16 174/78 97 01/31/17 23:38 98.7 F 71 19 145/62 99 01/31/17 18:54 98.6 F 72 20 142/56 96 01/31/17 15:07 97.5 F L 70 20 119/70 99 Intake and Output 01/31/17 02/01/17 02/01/17 23:59 07:59 15:59 Intake Total 240 / 240 Balance 240 / 240 Intake: Oral 240 / 240 Other: Meal Dinner Percent of Meal Consumed 90% Blood Glucose* 148 103 127 Incision: clean and dry - Labs CBC & BMP: 02/01/17 09:18 01/31/17 06:04 Labs: Abnormal lab results Hgb 10.2 g/dL (11.5-15.4) L 02/01/17 09:18 Hct 32.6 % (35.3-44.9) L 02/01/17 09:18 Glucose 135 mg/dL (70-99) H 01/31/17 06:04 POC Glucose 143 (58-89) H 01/31/17 21:15 - VTE Documentation of Mechanical Device: Venous foot pump, device Consult Discharge Plan - Plan Additional Instructions: Discharge Instructions: Total Knee Replacement Please call [facility] ([phone]), your Primary Care Physician, or report to the Emergency Room if you have any of the following symptoms: Nausea, vomiting, fever greater that 101.5, swelling, chest pain, shortness of breath, increased pain/redness/drainage/odor for your incision site, numbness/ tingling, or any other concerning symptoms. ACTIVITY:Weight-bearing as tolerated. You may progress off support (crutches or walker) as tolerated. MEDICATIONS: Upon discharge resume your home medications. Take all the medications as prescribed. Take a stool softener if taking narcotic pain medications. Stool softeners are only effective if you drink enough fluids. Drink 6-8 glass of water or fluids a day, unless this is not allowed for another health problem. Despite using stool softeners, if you haven't had a bowel movement in 3 days, please switch to a gentle laxative. Gentle laxatives are sold over the counter. You should have a bowel movement within 24 hours, if not call the office. You will be discharged from the hospital with a prescription for pain medication. You are encouraged to decrease the use of narcotic pain medication as tolerated. Should you require a refill, please call the office. [facility] prescribes narcotic pain medication for only 4-6 weeks after surgery. If you require pain medication beyond this time period, you may be referred to your Primary Care Physician or to the Pain Clinic for further evaluation. Plan ahead for refills on pain medication as many narcotics either need to be picked up at the office or mailed. It is best to call 48-72 hours in advance of needing a prescription refill so you don't run out of medication. To help control the post-operative pain, you may take NSAIDs (Aleve,Advil, Motrin, Ibuprofen, Naprosyn) or Tylenol as prescribed on the bottle in addition to the pain medication. ANTICOAGULATION (blood thinners): Continue your Aspirin, Lovenox or Coumadin as prescribed to help prevent a blood clot in the leg or in the lungs. As long as your incision remains dry and you tolerate the NSAIDs (Aleve, Advil, Motrin, ibuprofen, naprosyn), it is OK to use the NSAIDS while you are taking your anticoagulation medication. Should your incision start to drain, stop the NSAID and contact our office. Common symptoms of blood clot in the legs include: localized pain, swelling, calf tenderness, redness or discoloration of the skin. Blood clot in the lung symptoms include: shortness of breath, rapid pulse, sweating, and chest pain that worsens with deep breathing, coughing up blood, lightheadedness, feelings of anxiety. If you experience any of these symptoms notify your physician immediately, go to the emergency room, or if having trouble breathing, call 911. WOUND CARE: Leave the dressing on for 7 to 10days. You may change the dressing if it becomes saturated greater than 50%. Do not get the dressing wet at anytime. Wash your hands with antibacterial soap, rinse and dry prior to any wound care. If you have bran the visiting nurse or rehab facility can remove the stapes 10-14 days after surgery [address] steri-strips across the wound. Leave the steri-strips in place until they fall off on their won. You may let water from the shower run on top of the steri-strips. If you do not have a visiting nurse or rehab facility, you will need to return to the office at 10-14 days for the bran to be removed. If you have itching or redness around the dressing call the office. FOLLOW-UP: Please follow up with your surgeon in the orthopedic clinic in 4 weeks from the day of surgery. If you have bran that need to be removed, you will need to come back to the office in 10-14 days from the day of surgery. Referrals: Paco Ashley MD [Partnered Physician] - 02/28/17 3:45 pm Myranda Goldman PAC [Physician Broomcorn Thresher] - 02/08/17 8:15 am (Second followup (staple removal) 02/16/17 @ 8:15am ) Prescriptions: Aspirin Enteric Coated [Aspirin EC] 325 mg PO BID #42 tablet.
[2017-02-01] MEDS: *HR* HYDROmorphone (PF) 1 MG/ML SYRINGE IVP PRN (14:13)
[2017-02-01 15:48] VITALS: BP 117/74
== END 2017-02-01 18:55 | DRG 470 ==
LOC: SAMDAY 07:07 → 3NENU 12:50
PROVIDERS: ADMIT Orthopaedic Surgery; ATTEND Orthopaedic Surgery

== ENCOUNTER 2021-01-29 14:18 | Observation (INO) ==
[2021-01-29] MEDS ORDERED: 0.9 % Sodium Chloride 1,000 ML IVC ONE (15:10)
[2021-01-29] MEDS ORDERED: Isovue-370 500 ML BOTTLE IVP ONE (15:10)
[2021-01-29 15:43] LABS: Hematocrit 34.9 % (35.3-44.9); Hemoglobin 10.9 g/dL (11.5-15.4); Mean Corpuscular HGB Conc 31.2 g/dL (31.6-35.5); Mean Corpuscular Hemoglobin 28.6 pg (28.0-33.3); Mean Corpuscular Volume 91.6 fL (83.0-100.0); Platelet Count 110 K/mcL (140-400); Red Blood Count 3.81 M/mcL (3.82-4.97); White Blood Count 6.8 K/mcL (4.3-11.1)
[2021-01-29 15:51] LABS: INR 1.1; Prothrombin Time 12.6 Seconds (9.4-12.1)
[2021-01-29 15:54] LABS: Activated Partial Thrombo Time 32.3 Seconds (26.0-36.0)
[2021-01-29] MEDS ORDERED: Acetaminophen 325 MG TABLET PO ONE (16:31)
[2021-01-29] MEDS ORDERED: Aspirin 325 MG TABLET PO ONE (16:31)
[2021-01-29] MEDS ORDERED: Metoclopramide 10 MG in 0.9 % Sodium Chloride 50 ML IVPB ONE (16:32)
[2021-01-29 16:50] LABS: BUN/Creatinine Ratio 15 (6-26); Blood Urea Nitrogen 10 mg/dL (6-20); Carbon Dioxide 27 mEq/L (23-29); Chloride 101 mEq/L (98-107); Glucose 134 mg/dL (70-105); Osmolality,Calculated 285 (280-300); Potassium 3.8 mEq/L (3.5-5.1); Sodium 137 mEq/L (136-145); Troponin I < 0.03 ng/mL (< 0.04); eGFR For African Americans > 60 (> 60); eGFR For Non-African Americans > 60 (> 60)
[2021-01-29 17:21] LABS: Bilirubin,Urine Negative (Negative); Blood,Urine Negative (Negative); Clarity,Urine Clear (Clear); Color,Urine Light-Yellow (Yellow); Glucose,Urine (UA) Normal (Normal); Ketones,Urine Negative (Negative); Leukocyte Esterase,Urine Trace (Negative); Mucus,Urine Few per lpf (None-Few); Nitrite,Urine Negative (Negative); Protein,Urine Trace mg/dL (Neg-Trace); RBC,Urine 0-3 per hpf (0-3); Specific Gravity,Urine > 1.030 (1.010-1.025); Squamous Epithelial Cell,Urine Moderate per hpf (None-Few); Urobilinogen,Urine Normal (Normal); WBC,Urine 0-3 per hpf (0-3)
[2021-01-29 17:27] LABS: Amphetamine Screen,Urine Negative ng/mL (Cutoff=1000); Barbiturate Screen,Urine Negative ng/mL (Cutoff=200); Benzodiazepines Screen,Urine Negative ng/mL (Cutoff=200); Cannabinoid Screen,Urine Negative ng/mL (Cutoff = 50); Cocaine Screen,Urine Negative ng/mL (Cutoff= 300); Opiate Screen,Urine Negative ng/mL (Cutoff=300); Phencyclidine Screen,Urine Negative ng/mL (Cutoff=25)
[2021-01-29 17:35] LABS: Ethanol < 10 mg/dL (Less than 10)
[2021-01-29] MEDS ORDERED: Acetaminophen 325 MG TABLET PO PRN (17:43)
[2021-01-29] MEDS ORDERED: Perflutren Lipid Microsphere 1.3 ML in 0.9 % Sodium Chloride 8.7 ML IVP PRN (17:43)
[2021-01-29] MEDS ORDERED: *HR* Dextrose 50 % in Water (Syg) 50 ML SYRINGE IVP PRN (18:16)
[2021-01-29] MEDS ORDERED: Dextrose Gel 15 GM/37.5 ML TUBE PO PRN ×2 (18:16)
[2021-01-29] MEDS ORDERED: D5% in Water 1,000 ML IVC PRN (18:16)
[2021-01-29] MEDS: Insulin LISPRO 300 UNITS/3 ML VIAL SUBQ SCH (23:53)
[2021-01-30] MEDS ORDERED: *HR* Enoxaparin 40 MG/0.4 ML SYRINGE SQ SCH (06:00)
[2021-01-30] MEDS: Insulin LISPRO 300 UNITS/3 ML VIAL SUBQ SCH ×2 (06:23→12:48)
[2021-01-30 07:43] LABS: Alanine Aminotransferase 17 Units/L (7-52); Albumin 3.4 g/dL (3.5-5.7); Albumin/Globulin Ratio 1.3 (1.1-2.2); Alkaline Phosphatase 101 Units/L (34-104); Aspartate Amino Transferase 24 Units/L (13-39); BUN/Creatinine Ratio 16 (6-26); Bilirubin,Total 0.5 mg/dL (0.3-1.0); Blood Urea Nitrogen 8 mg/dL (6-20); Calcium 8.9 mg/dL (8.6-10.3); Carbon Dioxide 31 mEq/L (23-29); Chloride 102 mEq/L (98-107); Chol/HDL Ratio 3.9 (0-4.9); Cholesterol 189 mg/dL (< 200); Globulin 2.7 g/dL (2.4-3.5); Glucose 114 mg/dL (70-105); HDL Cholesterol 48 mg/dL (40-59); LDL Cholesterol,Calculated 120 mg/dL (< 100); LDL Cholesterol,Direct 119 mg/dL (75-193); Osmolality,Calculated 285 (280-300); Potassium 4.2 mEq/L (3.5-5.1); Sodium 138 mEq/L (136-145); Total Protein 6.1 g/dL (6.4-8.9); Triglycerides 106 mg/dL (< 150); Troponin I < 0.03 ng/mL (< 0.04); eGFR For African Americans > 60 (> 60); eGFR For Non-African Americans > 60 (> 60)
[2021-01-30 07:46] LABS: INR 1.1; Prothrombin Time 12.7 Seconds (9.4-12.1)
[2021-01-30 07:48] LABS: Activated Partial Thrombo Time 34.5 Seconds (26.0-36.0)
[2021-01-30] MEDS ORDERED: Aspirin Enteric Coated 81 MG Tablet PO SCH (09:00)
[2021-01-30] MEDS ORDERED: OXcarbazepine 150 MG TABLET PO SCH (09:00)
[2021-01-30 10:57] LABS: Estimated Average Glucose 131 mg/dl; Hemoglobin A1C 6.2 %
[2021-01-30 11:12] VITALS: BP 154/85; PULSE 81; TEMP 98.5; O2SAT 100
== END 2021-01-30 16:49 | disposition home or self-care (01) ==
LOC: 3BNU 14:18 → EMEROOARM 14:18 → 3BNU 18:46
PROVIDERS: ADMIT Internal Medicine; ATTEND Internal Medicine